=== PATIENT | female | born 1995 | race Caucasian/White ===

== ENCOUNTER → 2017-01-29 | Outpatient (CLI) | payer BC | LOC: BMCIMAGING 17:53 | PROVIDERS: ATTEND Family Medicine | DX: M79.671 Pain in right foot (principal) ==

== ENCOUNTER → 2017-10-01 | Outpatient (CLI) | payer BC | LOC: BMCIMAGING 09:29 | PROVIDERS: ATTEND Internal Medicine | DX: R05 Cough (principal); R06.00 Dyspnea, unspecified; R09.81 Nasal congestion ==

== ENCOUNTER → 2017-10-08 | Outpatient (CLI) | payer BC | LOC: BMCIMAGING 12:23 | PROVIDERS: ATTEND Internal Medicine | DX: R06.00 Dyspnea, unspecified (principal); R06.2 Wheezing ==

== ENCOUNTER → 2017-11-23 | Outpatient (CLI) | payer BC | LOC: BMCIMAGING 16:07 | PROVIDERS: ATTEND Emergency Medicine | DX: S89.91XA Unspecified injury of right lower leg, initial encounter (principal); W19.XXXA Unspecified fall, initial encounter ==